=== PATIENT | female | born 1980 | race Caucasian/White ===

== ENCOUNTER 2017-09-30 08:18 | Inpatient (IN) | payer OTHER ==
[~2017-09-30] VITALS: Ht 162.6 cm; Wt 79.4 kg
[2017-09-30] MEDS ORDERED: PRENATAL 19 TA1 EACH PO (10:17)
== END 2017-10-02 13:34 | DRG 774 ==
LOC: LDR 08:18 → OB/GYN 08:18
PROC: 10E0XZZ Delivery of Products of Conception, External Approach (ICD-10-PCS; principal; 2017-09-30)
PROC: 0KQM0ZZ Repair Perineum Muscle, Open Approach (ICD-10-PCS; 2017-09-30)
PROC: 4A033R1 Measurement of Arterial Saturation, Peripheral, Percutaneous Approach (ICD-10-PCS; 2017-09-30)
PROC: 4A1HXCZ Monitoring of Products of Conception, Cardiac Rate, External Approach (ICD-10-PCS; 2017-09-30)
DX: O70.1 Second degree perineal laceration during delivery (principal); O98.82 Other maternal infectious and parasitic diseases complicating childbirth; Z37.0 Single live birth; O76 Abnormality in fetal heart rate and rhythm complicating labor and delivery; B95.1 Streptococcus, group B, as the cause of diseases classified elsewhere; Z3A.37 37 weeks gestation of pregnancy